=== PATIENT | male | born 1995 | race Caucasian/White ===

== ENCOUNTER 2017-08-02 06:31 | Emergency (ER) | payer OTHER ==
[~2017-08-02] VITALS: Ht 182.9 cm; Wt 86.5 kg
[2017-08-02 06:36] VITALS: BP 121/76; PULSE 57; RESP 18; TEMP 97.9; O2SAT 98
[2017-08-02] MEDS ORDERED: BACT800T5 PO (08:12)
[2017-08-02] MEDS ORDERED: PRED20 PO (08:12)
--- NOTE | 2017-08-02 08:19 | PD ---
HPI Chief Complaint: Skin Problem Time Seen by Provider: 07:30 Travel History International Travel<30 days: No Contact w/Intl Traveler<30days: No Traveled to known affect area: No History of Present Illness HPI This patient complains of redness irritation and discomfort in his hands. He has had trouble with this over the last month but for the last 3 days and worsened draining. Denies fever or injury. 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 Symptoms severity is moderate. PFSH Past Medical History Medical History: Denies Significant Hx Tetanus Vaccination: < 5 Years Past Surgical History Oral Surgery: Yes (WISDOM TEETH REMOVAL) Social History Alcohol Use: Yes (3/4 BEER WEEKLY) Tobacco Use: Yes Substance Use: No Allergies-Medications (Allergen,Severity, Reaction): Coded Allergies: No Known Allergies (Unverified , 08/02/17) Reported Meds & Prescriptions Reported Meds & Active Scripts Active Bactrim DS (Sulfamethoxazole-Trimethoprim) 800-160 Mg Tab 1 Tab PO BID Prednisone 20 Mg Tab 40 Mg PO DAILY Take 40 mg (2 tablets) daily for 5 days Review of Systems General / Constitutional: No: Fever HENT: No: Headaches Cardiovascular: No: Chest Pain or Discomfort Respiratory: No: Cough Physical Exam Narrative Psych: Normal mood and affect. Normal insight and judgment. GASTROINTESTINAL: Abdomen soft, non-tender, nondistended. Positive bowel sounds. No hepato-splenomegaly, or palpable masses. No guarding. Hands: Patient has eczematous pattern on both hands worse in the fingers. There is some clear serous drainage from blisters. There is some yellow honey crusting Data Data Last Documented VS Vital Signs Date Time Temp Pulse Resp B/P (MAP) Pulse Ox O2 Delivery O2 Flow Rate FiO2 08/02/17 06:36 97.9 57 18 121/76 (91) 98 MDM Medical Decision Making Medical Screen Exam Complete: Yes Emergency Medical Condition: Yes Medical Record Reviewed: Yes Differential Diagnosis Hand dermatitis, eczema, cellulitis Narrative Course I have reviewed the patient's electronic medical record. Presentation here seems most consistent with a primary hand dermatitis. Likely exacerbated by his hands being wet all the time. He may have some degree of secondary infection here. I prescribed him a course of prednisone and a week of Bactrim DS. Patient should follow-up with dermatology or minimal primary care physician. I gave him one week off work. Recommend he keep his hands clean and dry. Diagnosis Primary Impression: Hand dermatitis Additional Instructions: The patient was advised to follow up with smoke room operator or primary care physician and return if they worsen. Keep hands clean and dry as possible Med/Other Pt SpecificInfo: Prescription(s) given Scripts Sulfamethoxazole-Trimethoprim (Bactrim DS) 800-160 Mg Tab 1 TAB PO BID for Infection, #14 TAB 0 Refills Prov: Madan Flannery MD 08/02/17 Prednisone (Prednisone) 20 Mg Tab 40 MG PO DAILY, #10 TAB 0 Refills Take 40 mg (2 tablets) daily for 5 days Prov: Madan Flannery MD 08/02/17 Disposition: 01 DISCHARGE HOME Condition: Stable Madan Flannery MD Aug 02, 2017 08:19
== END 2017-08-02 08:38 | disposition home or self-care (01) ==
LOC: PHED 06:31
DX: L30.9 Dermatitis, unspecified (principal)
CPT/HCPCS: 99284

== ENCOUNTER 2018-02-08 11:12 | Emergency (ER) | payer SELFPAY ==
[~2018-02-08] VITALS: Ht 180.3 cm; Wt 86.1 kg
[~2018-02-08 11:12] MED LIST: BACT800T5 PO; PRED20 PO
[2018-02-08 11:15] VITALS: BP 137/63; PULSE 100; RESP 16; TEMP 101.5; O2SAT 97
[2018-02-08 11:36] VITALS: BP 125/62; PULSE 89; RESP 18; O2SAT 95
[2018-02-08] MEDS ORDERED: SODIUM CHLOR 0.9% 1000 ML INJ 1,000 ML IV ONE ×2 (11:45→13:00)
[2018-02-08] MEDS ORDERED: IBUPROFEN 800 MG TAB PO ONE (11:45)
[2018-02-08] MEDS ORDERED: ACETAMINOPHEN 325 MG TAB PO ONE (11:45)
--- NOTE | 2018-02-08 11:47 | PD ---
HPI . Fever Chief Complaint: Abdominal Pain Time Seen by Provider: 11:35 Travel History International Travel<30 days: No Contact w/Intl Traveler<30days: No Traveled to known affect area: No History of Present Illness HPI This patient presents with a 3-day history of a febrile illness. Symptoms have been constant for the last 3 days. There have been no known modifying factors. Symptoms include cough and congestion, headache, abdominal pain and diarrhea. He took a dose of Advil last night with no relief of his symptoms. He has not taken any more Advil or any other [id number] analgesic or antipyretic. He rates his head discomfort at 7/10. It is bitemporal and throbbing. He denies any urinary tract symptoms. He denies any vomiting. [facility] Past Medical History Medical History: Denies Significant Hx Diminished Hearing: No ?: Not Past Surgical History Oral Surgery: Yes (WISDOM TEETH REMOVAL) Social History Alcohol Use: Yes (3/4 BEER WEEKLY) Tobacco Use: Yes (occasional) Substance Use: No Allergies-Medications (Allergen,Severity, Reaction): Coded Allergies: No Known Allergies (Unverified , 02/08/18) Reported Meds & Prescriptions Reported Meds & Active Scripts Active No Active Prescriptions or Reported Medications Review of Systems Except as stated in HPI: all other systems reviewed are Neg General / Constitutional: Positive: Fever, Chills Eyes: No: Drainage, Redness HENT: Positive: Headaches, Congestion Respiratory: Positive: Cough Gastrointestinal: Positive: Diarrhea, Abdominal Pain Genitourinary: No: Urgency, Frequency, Dysuria Physical Exam Narrative GENERAL: This is a healthy-appearing young man. SKIN: warm/dry. HEAD: Normocephalic. Atraumatic. Bitemporal tenderness. EYES: Pupils equal and round. Extraocular movements are intact. ENT: Mucous membranes pink and moist. NECK: Supple. Full range of motion without pain. No palpable cervical lymphadenopathy. CARDIOVASCULAR: Regular rate and rhythm. Heart rate is 100. RESPIRATORY: No accessory muscle use. Clear to auscultation. Breath sounds equal bilaterally. GASTROINTESTINAL: Abdomen soft. Lower abdominal tenderness. Bowel sounds present. Nondistended. MUSCULOSKELETAL: No obvious deformities. Normal muscle tone. NEUROLOGICAL: Awake and alert. No obvious cranial nerve deficits. Motor grossly within normal limits. Normal speech. PSYCHIATRIC: Appropriate mood and affect; insight and judgment normal. Data Data Last Documented VS Vital Signs Date Time Temp Pulse Resp B/P (MAP) Pulse Ox O2 Delivery O2 Flow Rate FiO2 02/08/18 12:48 100.3 96 18 125/57 (79) 96 Room Air Orders Orders Sepsis Workup Initiated (02/08/18 ) Complete Blood Count With Diff (02/08/18 11:44) Comprehensive Metabolic Panel (02/08/18 11:44) Lactic Acid Sepsis Protocol (02/08/18 11:44) Urinalysis - C+S If Indicated (02/08/18 11:44) Influenzae A/B Antigen (02/08/18 11:44) Blood Culture (02/08/18 11:44) Iv Access Insert/Monitor (02/08/18 11:44) Acetaminophen (Tylenol) (02/08/18 11:45) Ibuprofen (Motrin) (02/08/18 11:45) Sodium Chlor 0.9% 1000 Ml Inj (Ns 1000 M (02/08/18 11:45) Chest, Pa & Lat (02/08/18 11:47) Sodium Chlor 0.9% 1000 Ml Inj (Ns 1000 M (02/08/18 13:00) Labs Laboratory Tests Test 02/08/18 12:05 02/08/18 13:45 White Blood Count 15.4 TH/MM3 Red Blood Count 5.27 MIL/MM3 Hemoglobin 15.2 GM/DL Hematocrit 43.8 % Mean Corpuscular Volume 83.1 FL Mean Corpuscular Hemoglobin 28.9 PG Mean Corpuscular Hemoglobin Concent 34.7 % Red Cell Distribution Width 12.8 % Platelet Count 153 TH/MM3 Mean Platelet Volume 8.3 FL Neutrophils (%) (Auto) 90.7 % Lymphocytes (%) (Auto) 4.6 % Monocytes (%) (Auto) 2.6 % Eosinophils (%) (Auto) 0.0 % Basophils (%) (Auto) 2.1 % Neutrophils # (Auto) 14.0 TH/MM3 Lymphocytes # (Auto) 0.7 TH/MM3 Monocytes # (Auto) 0.4 TH/MM3 Eosinophils # (Auto) 0.0 TH/MM3 Basophils # (Auto) 0.3 TH/MM3 CBC Comment DIFF FINAL Differential Comment Blood Urea Nitrogen 18 MG/DL Creatinine 1.60 MG/DL Random Glucose 111 MG/DL Total Protein 7.7 GM/DL Albumin 4.0 GM/DL Calcium Level 8.6 MG/DL Alkaline Phosphatase 64 U/L Aspartate Amino Transf (AST/SGOT) 33 U/L Alanine Aminotransferase (ALT/SGPT) 40 U/L Total Bilirubin 1.5 MG/DL Sodium Level 135 MEQ/L Potassium Level 4.0 MEQ/L Chloride Level 101 MEQ/L Carbon Dioxide Level 24.2 MEQ/L Anion Gap 10 MEQ/L Estimat Glomerular Filtration Rate 53 ML/MIN Lactic Acid Level 1.3 mmol/L Urine Collection Type CATH Urine Color YELLOW Urine Turbidity CLEAR Urine pH 6.0 Urine Specific [place] 1.015 Urine Protein 30 mg/dL Urine Glucose (UA) NEG mg/dL Urine Ketones NEG mg/dL Urine Occult Blood TRACE Urine Nitrite NEG Urine Bilirubin NEG Urine Urobilinogen 0.2 MG/DL Urine Leukocyte Esterase NEG Urine RBC 4-9 /hpf Microscopic Urinalysis Comment CULT NOT INDICATED MDM Medical Decision Making Medical Screen Exam Complete: Yes Emergency Medical Condition: Yes Differential Diagnosis Differential diagnosis of fever includes but is not limited to viral illness, strep throat, otitis media, pneumonia, sepsis, UTI Narrative Course This patient presents with a 3-day history of a febrile illness. The most likely etiology is a viral illness. Septic workup is in process. In the meantime, he will be treated with IV fluids and oral Tylenol and ibuprofen. Further treatment and disposition will be based upon the results of his laboratory studies as well as his response to therapy. flu screen neg. Last Impressions Chest X-Ray 02/08/18 1147 Signed Impressions: CONCLUSION: No acute cardiopulmonary disease The chest x-ray was independently reviewed by ok CBC & BMP Diagram 02/08/18 12:05 Total Protein 7.7, Albumin 4.0, Calcium Level 8.6, Alkaline Phosphatase 64, Aspartate Amino Transf (AST/SGOT) 33, Alanine Aminotransferase (ALT/SGPT) 40, Total Bilirubin 1.5 H LA 1.3 UA>> negative for infection. Sepsis Criteria SIRS Criteria (2 or more): Temp > 100.9 or < 96.8, Heart rate over 90 Criteria Outcome: Meets SIRS criteria Diagnosis Primary Impression: Fever Qualified Codes: R50.9 - Fever, unspecified Patient Instructions: General Instructions, Viral Syndrome (DC) Additional Instructions: Lots of fluids. Tylenol and/or Advil as needed to control fever and for body aches. Scripts No Active Prescriptions or Reported Meds Disposition: 01 DISCHARGE HOME Condition: Stable Wendy Wheeler MD Feb 08, 2018 11:47
[2018-02-08 12:23] LABS: BASOPHIL # 0.3 TH/MM3 (0-0.2); BASOPHIL % 2.1 % (0.0-2.0); HEMATOCRIT 43.8 % (39.0-51.0); HEMOGLOBIN 15.2 GM/DL (13.0-17.0); LYMPH % 4.6 % (9.0-44.0); LYMPHOCYTE # 0.7 TH/MM3 (1.0-4.8); MEAN CELL VOLUME 83.1 FL (80.0-100.0); MEAN CORPUSCULAR HEMOGLOBIN 28.9 PG (27.0-34.0); MEAN CORPUSCULAR HGB CONC 34.7 % (32.0-36.0); MEAN PLATELET VOLUME 8.3 FL (7.0-11.0); MONO % 2.6 % (0.0-8.0); MONOCYTE # 0.4 TH/MM3 (0-0.9); NEUT % 90.7 % (16.0-70.0); PLATELET COUNT 153 TH/MM3 (150-450); RED BLOOD COUNT 5.27 MIL/MM3 (4.50-5.90); RED CELL DISTRIBUTION WIDTH 12.8 % (11.6-17.2); WHITE BLOOD COUNT 15.4 TH/MM3 (4.0-11.0)
[2018-02-08 12:33] LABS: CHLORIDE 101 MEQ/L (98-107); SODIUM (NA) 135 MEQ/L (136-145)
--- NOTE | 2018-02-08 12:35 | RADRPT ---
EXAM DATE: 02/08/2018 12:30 PM EDT AGE/SEX: 23 years / Male INDICATIONS: Cough CLINICAL DATA: This is the patient's initial encounter. Patient reports that signs and symptoms have been present for 3 days and indicates a pain score of 7/10. MEDICAL/SURGICAL HISTORY: None. None. COMPARISON: No prior exams available for comparison. FINDINGS: PA and lateral views of the chest demonstrate the lungs to be symmetrically aerated without evidence of mass, infiltrate or effusion. The cardiomediastinal contours are unremarkable. Osseous structures are intact. CONCLUSION: No acute cardiopulmonary disease Electronically signed by: Jann Peck MD 02/08/2018 12:34 PM EDT
[2018-02-08 12:36] LABS: CALCIUM 8.6 MG/DL (8.5-10.1)
[2018-02-08 12:37] LABS: BICARBONATE 24.2 MEQ/L (21.0-32.0); BLOOD UREA NITROGEN 18 MG/DL (7-18); GLUCOSE,RANDOM 111 MG/DL (74-106)
[2018-02-08 12:40] LABS: ALT (GPT) 40 U/L (12-78); AST (GOT) 33 U/L (15-37); GLOMERULAR FILTRATION RATE 53 ML/MIN (>89)
[2018-02-08 12:42] LABS: TOTAL BILIRUBIN ADULT 1.5 MG/DL (0.2-1.0); TOTAL PROTEIN 7.7 GM/DL (6.4-8.2)
[2018-02-08 12:43] LABS: ALKALINE PHOSPHATASE 64 U/L (45-117)
[2018-02-08 12:48] VITALS: BP 125/57; PULSE 96; RESP 18; TEMP 100.3; O2SAT 96
[2018-02-08 13:51] LABS: BILIRUBIN, URINE NEG (NEG); BLOOD, URINE TRACE (NEG); GLUCOSE,URINE NEG (NEG); KETONE, URINE NEG (NEG); NITRITE,URINE NEG (NEG); URINE COLOR YELLOW (YELLW/STRAW); URINE LEUKOCYTE ESTERASE NEG (NEG)
[2018-02-08 15:13] VITALS: BP 105/61; TEMP 98.2
== END 2018-02-08 15:23 | disposition home or self-care (01) ==
LOC: PHED 11:12
DX: R50.9 Fever, unspecified (principal); R05 Cough; R51 Headache; R10.9 Unspecified abdominal pain; R19.7 Diarrhea, unspecified; Z72.0 Tobacco use
CPT/HCPCS: 71046; 80053; 81001; 83605; 85025; 87040; 87804; 96360; 96361; 99284; J7030